=== PATIENT | female | born 1980 | race Two or more races ===

== ENCOUNTER 2020-01-11 22:57 | Emergency (ER) | payer BC, OTHER ==
[~2020-01-11] VITALS: Ht 175.3 cm; Wt 109.3 kg
[2020-01-11 23:01] VITALS: BP 145/88
[2020-01-12] MEDS ORDERED: IBUPROFEN 800 MG TAB PO ONE (00:15)
[2020-01-12] MEDS ORDERED: SILVER SULFADIAZINE 1 % TOPICAL CREAM 50GM TOP ONE (00:15)
== END 2020-01-12 00:41 | disposition home or self-care (01) ==
LOC: ER 22:57
DX: T23.111A Burn of first degree of right thumb (nail), initial encounter (principal); X15.2XXA Contact with hotplate, initial encounter; Y93.89 Activity, other specified; Y92.89 Other specified places as the place of occurrence of the external cause; Y99.8 Other external cause status
CPT/HCPCS: 16000

== ENCOUNTER 2021-09-22 14:44 | Emergency (ER) | payer BC, OTHER ==
[~2021-09-22] VITALS: Ht 175.3 cm; Wt 93.0 kg
[2021-09-22] MEDS ORDERED: ACETAMINOPHEN 500 MG TAB PO ONE (16:00)
[2021-09-22 16:29] VITALS: BP 133/87
== END 2021-09-22 17:16 | disposition home or self-care (01) ==
LOC: ER 14:44
DX: S76.012A Strain of muscle, fascia and tendon of left hip, initial encounter (principal); S80.01XA Contusion of right knee, initial encounter; M13.852 Other specified arthritis, left hip; M25.512 Pain in left shoulder; V43.52XA Car driver injured in collision with other type car in traffic accident, initial encounter; Y93.89 Activity, other specified; Y92.410 Unspecified street and highway as the place of occurrence of the external cause; Y99.8 Other external cause status
CPT/HCPCS: 73502; 73562